=== PATIENT | female | born 1965 | race African-American/Black ===

== ENCOUNTER 2019-11-11 11:02 | Observation (INO) | payer BC, SELFPAY ==
[2019-11-11] VITALS (11 sets, daily range): BP systolic 109–152; BP diastolic 63–84; PULSE 64–120; RESP 13–20; TEMP 36.1–36.9; O2SAT 97–100; BMI 40.4
--- NOTE | ~2019-11-11 | CT_ITS ---
EXAMINATION: CT brain wo con INDICATION: Confusion, transient alteration of awareness COMPARISON: None TECHNIQUE: Standard unenhanced head CT. The dose-length product (DLP) was 605.33 mGy-cm. The mA was a djusted according to patient size. Iterative reconstruction technique was employed. FINDINGS: There is no intracranial hemorrhage, acute infarction, or abnormal mass lesion. The ventric les are normal. There is no abnormal mass effect or midline shift. The olivia-white matter differentiat ion is normal. The basal cisterns are patent. The orbits are normal. The paranasal sinuses, mastoids and calvarium are normal. IMPRESSION: 1. No acute intracranial abnormality. Reviewed, dictated and finalized at location A.
--- NOTE | ~2019-11-11 | MR_ITS ---
EXAMINATION: MR brain/brain stem wo con DATE: 11/11/2019 16:53 INDICATION: Altered mental status, felt lightheaded and became unresponsive, shaking and not followin g commands. TECHNIQUE: Magnetic resonance imaging (MRI) of the brain and brainstem was performed without intraven ous contrast. Sequences included sagittal and axial T1-weighted SE, axial diffusion-weighted FS SE, a xial T2*-weighted GRE, axial T2-weighted FLAIR, and axial T2-weighted FSE. Apparent diffusion coeffic ient (ADC) maps were created. COMPARISON: Head CT and CTA dated 11/11/2019 FINDINGS: There are no areas of restricted diffusion to suggest acute infarction. No intracranial hemorrhage or abnormal intracranial mass lesion. There are a few small scattered foci of nonspecific increased T2- weighted signal intensity in the cerebral white matter which is within normal limits for age. There a re no intraparenchymal signal abnormalities seen on the other pulse sequences. The ventricles are sym metric and normal in size. There are no abnormal extra-axial fluid collections. Flow voids are seen i n the cerebral arteries on the T2-weighted sequences consistent with their expected patency. Visualiz ed orbits and soft tissues are unremarkable. IMPRESSION: 1. A few scattered tiny foci of nonspecific white matter T2 hyperintensity which is within normal starr its for age, most likely related to chronic small vessel ischemic disease. Otherwise normal brain MRI . Reviewed, dictated and finalized at location A. IMPRESSION: 1. A few scattered tiny foci of nonspecific white matter T2 hyperintensity whic h is within normal limits for age, most likely related to chronic small vessel ischemic disease. Otherwise normal brain MRI.
--- NOTE | ~2019-11-11 | CT_ITS ---
EXAMINATION: CTA brain carotid DATE: 11/11/2019 14:38 INDICATION: Unresponsiveness. TECHNIQUE: Computed tomographic angiography (CTA) of the head was performed with 100 mL Omnipaque-350 intravenous contrast. CTA of the neck was performed with intravenous contrast. Automated exposure co ntrol and iterative reconstruction technique were employed. The dose-length product was 1044.24 mGy-c m. Maximum intensity projection and volume rendered 3D-reconstructions were created by the [employer] st on a separate workstation. COMPARISON: Head CT 11/11/2019 FINDINGS: HEAD CTA: There is no intracranial hemorrhage, acute infarction, or abnormal intracranial mass lesion . The ventricles are normal in size. The paranasal sinuses are clear. The mastoid air cells are sandro l. The orbits are normal. The vertebral arteries are codominant. There is no significant stenosis of basilar artery or the posterior cerebral arteries. There is no significant stenosis of the intracrani al internal carotid arteries or anterior or middle cerebral arteries. Anterior communicating artery i s normal. The posterior communicating arteries are normal. There is no aneurysm. NECK CTA: There are nodules in the thyroid measuring up to 11 mm, likely not clinically significant. There are no pathologically enlarged lymph nodes. There is no significant stenosis of the vertebral a rteries. There is mild plaque in the proximal internal carotid arteries. There is 0% stenosis of the proximal right internal carotid artery relative to normal distal artery lumen diameter (NASCET criter ia). There is 0% stenosis of the proximal left internal carotid artery relative to normal distal karen ry lumen diameter. There is mild cervical spondylosis. IMPRESSION: 1. Normal brain. No aneurysm or significant intracranial arterial stenosis. 2. 0% stenosis of the proximal internal carotid arteries relative to normal distal artery lumen diame ters (NASCET criteria). Reviewed, dictated and finalized at location A. IMPRESSION: 1. Normal brain. No aneurysm or significant intracranial arterial stenosis. 2. 0% stenosis of the proximal internal carotid arteries relative to normal dis kadeem artery lumen diameters (NASCET criteria).
--- NOTE | 2019-11-11 11:08 | PC.NURSE ---
Pt eyes open at this time, tearful, abnormal movements. not following commands. non verbal at this time.
--- NOTE | 2019-11-11 11:12 | ECG_ITS ---
Measurements Intervals Warden Rate: 122 P: 61 NV: 132 QRS: 36 QRSD: 86 T: 40 QT: 299 QTc: 427 Interpretive Statements SINUS TACHYCARDIA MINIMAL Q WAVES- INFERIOR LEADS ABNORMAL ECG Electronically Signed On 11-11-2019 11:20:08 CDT by Guanako Van D.O.
--- NOTE | 2019-11-11 11:22 | PC.NURSE ---
Pt stopped shaking and told me her birthday. Will not answer any other questions at this time.
--- NOTE | 2019-11-11 12:34 | ED.GENADULT ---
HPI - General Adult General Chief complaint: Neuro Symptoms/Deficit Stated complaint: altered mental status Time Seen by Provider: 11/11/19 12:17 History of Present Illness HPI narrative: Patient is a 54 y/o female sent by EMS from work for unresponsiveness. Patient was reportedly shaking, not answering questions or following commands at work. 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 She has no recollection of what happened afterwards or how she got here. She still feels weak all over. She denies any pain or SOB. Related Data Home Medications Medication Instructions Recorded Confirmed meloxicam 7.5 mg PO BID PRN 11/11/19 11/11/19 metoprolol tartrate 25 mg PO BID 11/11/19 11/11/19 triamterene-hydrochlorothiazid 1 tablet PO DAILY 11/11/19 11/11/19 Allergies Allergy/AdvReac Type Severity Reaction Status Date / Time No Known Allergies Allergy Verified 11/11/19 15:58 Review of Systems Constitutional: Constitutional: Denies chills, Denies fever(s), Denies headache(s) and Reports weakness Eyes: Eyes: Denies blurry vision ENT: Denies headache(s) and Denies neck pain Cardiovascular: Cardiovascular: Denies chest pain and Denies dyspnea Respiratory: Respiratory: Denies cough and Denies dyspnea Gastrointestinal: Gastrointestinal: Denies abdominal pain, Denies diarrhea, Denies nausea and Denies vomiting Genitourinary: Genitourinary: Denies hematuria and Denies dysuria Musculoskeletal: Musculoskeletal: Denies back pain and Denies neck pain Neurologic: Reports syncope, Denies headache(s), Reports convulsions and Reports weakness Psychiatric: Psychiatric: Reports confusion [facility] Family History Family History (Updated 11/11/19 @ 16:19 by Candy Huitron RN) Father Hypertension Mother Hypertension Social History Social History Smoking status: Never smoker Alcohol intake: never Substance use: never Gender identity (if verbalized by the patient): Female Spiritual care concerns: No Exam Const: General: no acute distress and well developed Orientation/consciousness: oriented to person, oriented to place, oriented to time and patient oriented x3 HENMT: Head: normocephalic Ears: external ears normal General nose exam: Normal external nose present Eyes: General: appearance normal, both eyes and all related structures Conjunctivae: conjunctivae normal Neck: Neck: normal visual inspection and full ROM Chest: Chest palpation & inspection: normal inspection of the chest and no tenderness Resp: Effort & Inspection: normal respiratory effort Auscultation: clear to auscultation bilaterally Cardio: Rate: regular rate Rhythm: regular rhythm GI: GI Palp: No abdominal tenderness and Yes Soft to palpation Skin: General skin exam: normal color and turgor normal Neuro: General: oriented to person, oriented to place, oriented to time and patient oriented x3 Cranial nerves: Yes CN's II-XII intact bilaterally Cognition (Neuro): normal cognition Speech: normal speech Motor exam (neuro): 5/5 motor strength present throughout Sensory Exam: normal sensation Coordination: [id number] test normal and iihh-ca-ytoh test normal Extrem: General: normal to inspection, full ROM and no pedal edema Psych: Appearance: grossly normal Mental Status: mental status grossly normal Affect: normal affect Course Consultations Consultation #1: Discussed with LILLIE Mark, who agrees to admit to Dr. Farnsworth. She also recommends consulting neurology for possible seizure. Date: 11/11/19 Time: 13:54 Consultation #2: Discussed with Dr. Perez, who agrees to consult. He also recommends CTA, MRI and EEG Date: 11/11/19 Time: 13:57 Vital Signs Vital signs: Vital Signs Temperature 36.9 C 11/11/19 10:56 Pulse Rate 120 H 11/11/19 10:56 Respiratory Rate 20 11/11/19 10:5
[2019-11-11 12:39] LABS: Basophils Percent Auto 0.2 % (0.2-1.2); Eosinophils Percent Auto 0.3 % (0-4.4); Hemoglobin 11.1 g/dL (12.0-15.0); Immature Granulocyte Absolute 0.02 K/mm3 (0.00-0.031); Immature Granulocyte Percent A 0.3 % (0-0.5); Lymphocytes Absolute Auto 1.53 K/mm3 (0.9-3.2); Lymphocytes Percent Auto 24.3 % (18.3-44.2); Mean Corpuscular HGB Conc 31.7 g/dl (32-36); Mean Corpuscular Hemoglobin 27.9 pg (26-34); Mean Corpuscular Volume 87.9 fl (80-100); Mean Platelet Volume 11.3 fl (7.4-10.4); Monocytes Absolute Auto 0.6 K/mm3 (0.1-0.6); Neutrophils Absolute Auto 4.2 K/mm3 (1.3-6.7); Neutrophils Percent Auto 65.9 % (45.5-73.1); Platelet Count Result 214 k/mm3 (150-375); Red Blood Count 3.98 M/mm3 (4.2-5.4); Red Cell Distribution Width 13.3 % (11.5-14.5); White Blood Count 6.3 K/mm3 (4.5-10.0)
[2019-11-11 12:45] LABS: INR 1.1; Partial Thromboplastin Time 26.6 SECONDS (22.3-36.8); Prothrombin Time 13.4 Seconds (11.1-14.7)
[2019-11-11 12:47] LABS: Alanine Aminotransferase 26 U/L (4-35); Albumin Level 4.6 g/dL (3.5-5.1); Alkaline Phosphatase 101 U/L (38-126); Anion Gap 10 mmol/L (8-16); Aspartate Amino Transferase 26 U/L (14-36); Bilirubin,Total 0.5 mg/dL (0.2-1.3); Blood Urea Nitrogen 32 mg/dL (7-17); Calcium 9.3 mg/dL (8.4-10.2); Carbon Dioxide 25 mmol/L (22-30); Chloride 103 mmol/L (98-107); Estimated Glomerular Filt Rate > 60; Glucose 104 mg/dL (65-105); Potassium 3.5 mmol/L (3.4-5.0); Sodium 138 mmol/L (137-145)
[2019-11-11 13:32] LABS: Add Urine Microscopic? YES; Appearance Urine Clear (Clear); Bilirubin Urine Negative (Negative); Blood Urine Negative (Negative); Color Urine Straw (Yellow); Glucose Urine UA Negative (Negative); Ketones Urine Negative (Negative); Leukocyte Esterase Ur Negative LEU/UL (Negative); Mucus Urine Rare /lpf; Nitrate Urine Negative (Negative); Protein Urine Negative (Negative); RBC Urine 0-2 /hpf (0-2); Specific Grav Ur 1.015 (1.001-1.035); Squamous Epithelial Cell Urine Moderate /hpf (Few); Urobilinogen Urine Negative mg/dL (<2.0); WBC Urine 0-3 /hpf
--- NOTE | 2019-11-11 13:37 | PC.NURSE ---
Pt alert and talking at this time. Pt not shaking. Pt A&Ox4. Pt ambulatory to the bathroom with no difficulty
[2019-11-11 13:50] LABS: Amphetamine Screen Urine Negative (Negative); Barbiturate Screen Urine Negative (Negative); Benzodiazepines Screen Urine Negative (Negative); Cannabinoid Screen Urine Negative (Negative); Cocaine Screen Urine Negative (Negative); Methadone Screen Urine Negative (Negative); Opiate Screen Urine Negative (Negative); Phencyclidine Screen Urine Negative (Negative)
--- NOTE | 2019-11-11 15:55 | PC.NURSE ---
This patient, Chrissie Pinto, was admitted to [facility] Surg Room 320-01. Patient/family oriented to hospital policies and general routines including ID bracelet, bed and alarms, visiting hours, pain management, procedures, bathroom and other care routines, personal items, smoking policy, room service/diet, and visiting hours. Valuables list has been completed. Information on how to activate the Rapid Response Team has been discussed. Patient/Family are encouraged to report perceived risks to care and to ask questions if they do not understand what they are told or what they should do.
[2019-11-11] MEDS: ACETAMINOPHEN 325 MG TABLET 650 MG PO ×2 (18:22→22:31)
--- NOTE | 2019-11-11 21:32 | PM.IMHP ---
H&P: HPI History of Present Illness Date/Time: 11/11/19 21:32 Chief complaint: unresponsive Narrative: Chrissie Pinto is a 54 year old female Who has a past medical history of having a pulmonary emboli in the past. Also she had a couple episodes of atrial fibrillation. She is not on any anticoagulation but has been on metoprolol. She says that her blood pressure is typically well controlled with her blood pressure medication. The patient said that she has been feeling stressed out at work. She heard that there was a COVID case at her work and she was a little spit stressed out about that as well. She said that she went to work she felt fine did have any palpitations or shortness of breath no chest pain no nausea no vomiting no no headache no pain she said that she took her water pill this morning as she usually does. She does not typically have any dizziness or any other problems with her water pill. She does not really recall what happened at work. She has remembers that she felt very weak and was calling for help. She said that she was told later that she does was not responding. Her daughter is a durable power document review attorney for healthcare. The patient is full code. CT of the brain was read as no acute intracranial abnormality. CT of the neck showed a normal brain in 0% stenosis of the proximal internal carotid arteries relative to normal distant artery from lumen diameters. MRI of the brain was read asA few scattered tiny foci of nonspecific white matter T2 hyperintensity which is within normal limits for age, most likely related to chronic small vessel ischemic disease. Otherwise normal brain MRI. the patient complaining of a left-sided headache now. She states that she typically takes extra-strength Tylenol for that. The patient is awake and talking and not having any difficulties with speech. No facial droop no focal weakness. The patient stated that they noticed that she was shaking when she was sliding down on the floor. She was not incontinent of any urine or bowel she has no history of any seizure disorder. I spent approximately 40 minutes with the patient. Date of service 11/11/2019 Review of Systems Review of Systems: All systems reviewed & are unremarkable except as noted in HPI and below Constitutional: Constitutional: Reports as per HPI and Reports no additional constitutional complaints Eyes: Eyes: Reports as per HPI and Reports no additional eye complaints ENT: Reports system reviewed and no additional complaints, except as documented and Reports Normal hearing present Cardiovascular: Cardiovascular: Reports no additional cardiovascular complaints Respiratory: Respiratory: Reports no additional respiratory complaints and Reports no additional respiratory complaints Gastrointestinal: Gastrointestinal: Reports as per HPI and Reports no additional gastrointestinal complaints Musculoskeletal: Musculoskeletal: Reports no additional musculoskeletal complaints Integumentary/Breasts: Skin/Breast: Reports system reviewed and no additional complaints, except as docu and Reports as per HPI Neurologic: Reports system reviewed and no additional complaints, except as documented, Reports as per HPI and Reports Normal hearing present Psychiatric: Psychiatric: Reports no additional psychiatric complaints and Reports as per HPI Endocrine: Endocrine: Reports no additional endocrine complaints Hematologic/Lymphatic: Hematologic/Lymphatic: Reports no additional hematologic/lymphatic complaints Allergic/Immunologic: Allergic/Immunologic: Reports no additional allergic/immunologic complaints PMFSH Past Medical History Medical History (Updated 11/11/19 @ 21:40 by Deedee Rodriguez, LILLIE) Atrial fibrillation paroxysmal without any anticoagulation. History of esophageal dilatation Hx pulmonary embolism not on any chronic anticoagulation. Hypertension Surgical History Surgical History (Updated 11/11/19 @ 21:40 by Deedee Rodriguez,
[2019-11-11] MEDS: KETOROLAC 15 MG/ML VIAL (*BKC) IV PUSH (22:46)
[2019-11-11] MEDS: METOPROLOL TARTRATE 25 MG TABLET PO (22:46)
[2019-11-12] VITALS (7 sets, daily range): BP systolic 104–114; BP diastolic 68–75; PULSE 57–69; RESP 16–20; TEMP 36.3–36.9; O2SAT 96–99
--- NOTE | 2019-11-12 | ECHO_ITS ---
Patient Info Name: Chrissie Pinto Age: 54 years : 1965 Gender: Female Ht: 62 in Wt: 220 lbs BSA: 2.14 m2 HR: 67 bpm BP: 104 / 75 mmHg Heart Rhythm: Sinus Rhythm Technical Quality: Good Exam Date: 11/12/2019 10:38 AM Exam Location: [facility] Pulmonary Patient Status: Inpatient Admit Date: 11/11/2019 Staff Ordering Physician: Rylee Santos PA-C Back Sewer: Vlad Cage RDCS, RT Attending Provider: Rylee Santos PA-C Referring Physician: Danielle IGLESIAS; Exam Type: CA echo doppler w bubble study Study Info Indications G45.8 - Other transient cerebral ischemic attacks and related syndromes Complete two-dimensional, color flow and Doppler transthoracic echocardiogram is performed with agitated saline. Summary 1. Left ventricular systolic function is normal, estimated at 60-65%. 2. There is no increased left ventricular wall thickness. 3. Global longitudinal strain is normal at -18 %. 4. No intracardiac shunt at the atrial level with injection of agitated saline with and without Valsalva. 5. There is no aortic valve stenosis. 6. There is mild mitral valve regurgitation. 7. There is mild tricuspid valve regurgitation. 8. No pulmonary hypertension, estimated pulmonary arterial systolic pressure is 27 mmHg. 9. Normal inferior vena cava with >50% collapse upon inspiration consistent with normal right atrial pressure, 5 mmHg. Left Ventricle Left ventricular chamber dimension is normal. Left ventricular systolic function is normal, estimated at 60-65%. There is no increased left ventricular wall thickness. The left ventricular diastolic function is normal. Global longitudinal strain is normal at -18 %. Right Ventricle Right ventricular chamber dimension is normal. Right ventricular systolic function is normal. Left Atria Left atrial chamber dimension is normal. Right Atria Right atrial chamber dimension is normal. Atrial Septum No intracardiac shunt at the atrial level with injection of agitated saline with and without Valsalva. Aortic Valve The aortic valve is trileaflet. There is no aortic valve stenosis. There is no aortic valve regurgitation. Pulmonic Valve The pulmonic valve is not well visualized. Mitral Valve The mitral valve has normal leaflets. There is mild mitral valve regurgitation. Tricuspid Valve The tricuspid valve leaflets are normal. There is mild tricuspid valve regurgitation. No pulmonary hypertension, estimated pulmonary arterial systolic pressure is 27 mmHg. Pericardium/Pleural The pericardium appears normal. There is no pericardial effusion. Inferior Vena Cava Normal inferior vena cava with >50% collapse upon inspiration consistent with normal right atrial pressure, 5 mmHg. Aorta The aortic root size at the sinus of Valsalva is normal. Left Ventricular Outflow Tract Name Value Normal LVOT 2D LVOT Diameter 2.0 cm LVOT Doppler LVOT Peak Gradient 4 mmHg LVOT Mean Gradient 2 mmHg LVOT VTI 22 cm LVOT VTI/AV VTI Ratio 0.8
[2019-11-12 07:08] LABS: Basophils Percent Auto 0.3 % (0.2-1.2); Eosinophils Percent Auto 0.6 % (0-4.4); Hematocrit 36.2 % (37.0-47.0); Hemoglobin 11.5 g/dL (12.0-15.0); Immature Granulocyte Absolute 0.02 K/mm3 (0.00-0.031); Immature Granulocyte Percent A 0.3 % (0-0.5); Lymphocytes Percent Auto 53.6 % (18.3-44.2); Mean Corpuscular HGB Conc 31.8 g/dl (32-36); Mean Corpuscular Hemoglobin 27.9 pg (26-34); Mean Corpuscular Volume 87.9 fl (80-100); Monocytes Absolute Auto 0.4 K/mm3 (0.1-0.6); Monocytes Percent Auto 5.6 % (2.6-8.5); Neutrophils Absolute Auto 2.8 K/mm3 (1.3-6.7); Neutrophils Percent Auto 39.6 % (45.5-73.1); Platelet Count Result 239 k/mm3 (150-375); Red Blood Count 4.12 M/mm3 (4.2-5.4); Red Cell Distribution Width 13.2 % (11.5-14.5); White Blood Count 7.1 K/mm3 (4.5-10.0)
[2019-11-12 07:14] LABS: Alanine Aminotransferase 25 U/L (4-35); Albumin Level 4.5 g/dL (3.5-5.1); Alkaline Phosphatase 95 U/L (38-126); Anion Gap 9 mmol/L (8-16); Aspartate Amino Transferase 24 U/L (14-36); Bilirubin,Total 0.9 mg/dL (0.2-1.3); Blood Urea Nitrogen 26 mg/dL (7-17); Calcium 9.6 mg/dL (8.4-10.2); Carbon Dioxide 27 mmol/L (22-30); Chloride 100 mmol/L (98-107); Estimated CRCL calculation 79 ml/min; Estimated Glomerular Filt Rate > 60; Glucose 90 mg/dL (65-105); Magnesium 2.1 mg/dL (1.6-2.3); Potassium 3.3 mmol/L (3.4-5.0); Sodium 136 mmol/L (137-145)
--- NOTE | 2019-11-12 08:00 | NEURO_ITS ---
TEST: ELECTROENCEPHALOGRAM DIAGNOSIS: SHAKING EPISODE PATIENT NUMBER: [id number] EEG NUMBER: [id number] RECORDING DATE: 11/12/19 CLINICAL HISTORY: Patient reports she was feeling weak when she got up yesterday but went to work anyway. She became unresponsive and shaky. Denies loss of consciousness. CONDITION OF RECORDING: Awake, drowsy and sleep EEG DESCRIPTION: Basic resting occipital frequency consists of moderate amount of well organized low to medium voltage 8-10hz alpha mixed with low voltage 15- 18hz beta. During drowsiness low voltage beta activity is seen diffusely mixed with waxing and waning posterior alpha rhythms. Bilateral symmetrical sleep activity is seen during sleep. Hyperventilation and photic stimulation were not done. Nonparoxysmal. Nonfocal. Nonlateralizing. IMPRESSION: Normal record. [facility]
--- NOTE | 2019-11-12 10:31 | PC.NURSE ---
PT STATES THAT SHE FEELS BETTER BUT STILL HAS A LEFT SIDED HEADACHE AND BACK OF NECK PAIN. NO VISUAL PROBLEMS, NO SHAKING HR IS 58
[2019-11-12] MEDS: METOPROLOL TARTRATE 25 MG TABLET PO (11:36)
[2019-11-12] MEDS: TRIAMTERENE 37.5 MG/HCTZ 25 MG (MAXZIDE) TABLET 1 TAB PO (11:37)
--- NOTE | 2019-11-12 11:57 | WPDNEURCNPN ---
Assessment and Plan Assessment and plan (1) Atrial fibrillation: Code(s): I48.91 - Unspecified atrial fibrillation Status: Chronic (2) Hypertension: Code(s): I10 - Essential (primary) hypertension Status: Chronic (3) Episode of unresponsiveness: Code(s): R41.89 - Other symptoms and signs involving cognitive functions and awareness Status: Acute (4) Altered mental status: Qualifiers: Altered mental status type: unspecified Qualified Code(s): R41.82 - Altered mental status, unspecified Code(s): R41.82 - Altered mental status, unspecified Status: Acute Additional Plan TIA versus a seizure EEG has been done and has been reviewed personally it does not show any paroxysmal activity other workup is pending at this particular time further recommendations will be made accordingly sign not readministered thank you Consult date: 11/12/19 Time Seen: 12:00 HPI: Chrissie Pinto is a 54 year old femaleHas been admitted to the hospital with information that she went to work where she has some palpitation without associated chest pain or discomfort she had taken her diuretics in the morning generally she does not have any dizziness but while at work she felt very weak and was calling for help later on she was told by the co-worker that she was not responding when she came to the hospital emergency room CT scan of the head was done which was negative Petterchak Abusin CT scan CTA of the neck MRI of the brain revealed scattered tiny foci of nonspecific white matter hyperintensities related to chronic small vessel disease she complained of left-sided headache she does have a history of idiopathic pulmonary emboli and atrial fibrillation and has been on anticoagulation therapy Review of Systems Review of Systems: Narrative: all systems reviewed and are unremarkable All systems reviewed & are unremarkable except as noted in HPI and below PMFSH Past Medical History Medical History Atrial fibrillation paroxysmal without any anticoagulation. History of esophageal dilatation Hx pulmonary embolism not on any chronic anticoagulation. Hypertension Surgical History Surgical History H/O: hysterectomy History of section, classical x2 Family History Family History Father Hypertension Mother Hypertension Social History Social History Social History: the patient is single never been . Has 3 children. She lives with her children. Her daughter is a durable power exchange consultant for healthcare. She works at [employer]. She is a lifelong nonsmoker. She does not use illicit drugs marijuana or alcohol. She wishes to be a full code. Smoking status: Never smoker Alcohol intake: never Substance use: never Gender identity (if verbalized by the patient): Female Spiritual care concerns: No Meds Home Medications and Allergies Home Medications Medication Instructions Recorded Confirmed Type meloxicam 7.5 mg PO BID PRN 11/11/19 11/11/19 History metoprolol tartrate 25 mg PO BID 11/11/19 11/11/19 History triamterene-hydrochlorothiazid 1 tablet PO DAILY 11/11/19 11/11/19 History Allergies Allergy/AdvReac Type Severity Reaction Status Date / Time No Known Allergies Allergy Verified 11/11/19 15:58 Vital Signs Vital Signs - 24 hr 11/11/19 12:31 11/11/19 13:34 11/11/19 15:20 Temperature Pulse Rate 82 71 80 Respiratory Rate 13 19 18 Blood Pressure 120/84 116/78 109/77 Pulse Oximetry 100 100 100 11/11/19 16:00 11/11/19 18:13 11/11/19 20:00 Temperature 36.7 C Pulse Rate 64 78 70 Respiratory Rate 18 Blood Pressure 121/63 Pulse Oximetry 97 11/11/19 22:00 11/11/19 22:46 11/12/19 00:00 Temperature 36.1 C L Pulse Rate 67 80
--- NOTE | 2019-11-12 14:14 | PM.DS ---
DS: Admitting Diagnosis Admitting Diagnosis Admitting Diagnosis: unresponsive DS: Discharge Diagnosis Discharge Diagnosis (1) Episode of unresponsiveness: Code(s): R41.89 - Other symptoms and signs involving cognitive functions and awareness Status: Acute Assessment and Plan: -----patient states she woke in felt worn out and just did not feel right. She had a slight headache but she took Tylenol for and did not improve. When she was at work, she fell increasingly tired, weak and still had headache. She admits that she was focused on this since the pandemic is worsening and they have COVID-19 cases at work. She was not having cough, shortness of breath or any other symptoms of COVID-19. She said she started not feeling like herself so she went to sit down. She had no chest pain, palpitations, diaphoresis or shortness of breath with this. She called some coworkers over to let them know and they said she became altered. She was never unresponsive but she was not answering questions appropriately or following commands. No repetitive movements or loss of bowel or bladder function was noted. 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 She was admitted to the hospital and is underwent a CTA of the brain, EEG, and MRI which did not show any acute abnormalities. She had no recurrence of her symptoms while here. She was monitored on telemetry which did not show any abnormal reviews. The patient does have a history of paroxysmal atrial fibrillation that she sees Dr. owens for. I called him and let him know about her symptoms and he recommended an outpatient halter monitor and is going to see her in the office for that. He does not recommend any anticoagulation at this time. (2) Hypertension: Code(s): I10 - Essential (primary) hypertension Status: Chronic Assessment and Plan: -----Continue with her metoprolol and triamterene with hydrochlorothiazide (3) Migraine: Code(s): G43.909 - Migraine, unspecified, not intractable, without status migrainosus Status: Acute Assessment and Plan: -----resolved. (4) Atrial fibrillation: Code(s): I48.91 - Unspecified atrial fibrillation Status: Chronic Assessment and Plan: Continue to monitor. The patient is in sinus rhythm at this time. Patient is not on any anticoagulation--see above. She has had history of having a PE in the past but was only on anticoagulation a brief period time. DS: Summary Hospital Course Reason for hospitalization: Altered mental status/unresponsiveness Hospital Course: Patient is a 54-year-old female who presented emergency room for unresponsive during work. Your the patient reports that she did not feel well the entire day but went to work. She fell increasingly weak and out of it. She tried to sit down to relax but then became unresponsive and was reportedly shaking and not answering questions. She remembers feeling lightheaded and feeling like she was floating in the room and denied chest pain, diaphoresis, shortness of breath, or seizure-like activity before this. Vitals in the ER were temperature 36.9?, pulse 120, respiratory rate 20, blood pressure 152/83, pulse ox [address] of the brain was normal. MRI was also done which did not show any acute abnormalities. Please see above for further details. Spoke with , cardiology from [facility] about the case. Plan is to hold on anticoagulation and redo a heart monitor to see how often she goes into atrial fibrillation and if she has any other arrhythmias, which seem less likely. CHADS2 Vasc score is 2. Status at Discharge Functional status at discharge: independent ambulation Overall status at discharge: patient is back to baseline Time Spent with Patient Time attestation: Total time spent providing and/or coordinating discharge services
== END 2019-11-12 17:00 | disposition home or self-care (01) ==
LOC: ANHED 12:17 → ANH3MEDSUR 15:17
PROVIDERS: Nurse Practitioner; Admitting Provider Internal Medicine; Emergency Provider Emergency Medicine; Visit Provider Family Medicine
DX: R41.89 Other symptoms and signs involving cognitive functions and awareness (principal); I10 Essential (primary) hypertension; G43.909 Migraine, unspecified, not intractable, without status migrainosus; I48.91 Unspecified atrial fibrillation; Z86.711 Personal history of pulmonary embolism; Z79.899 Other long term (current) drug therapy
CPT/HCPCS: 36415; 70450; 70496; 70498; 70551; 80053; 80307; 81001; 83735; 84443; 85025; 85610; 85730; 93005; 93306; 95816; 96374; 96375; 99285; A9270; G0378; G0379; J1885; Q9967